=== PATIENT | female | born 1940 | race Caucasian/White ===

== ENCOUNTER 2016-08-30 12:18 | Emergency (ER) | payer MEDICARE, OTHER ==
[~2016-08-30] VITALS: Ht 162.6 cm; Wt 95.3 kg
[2016-08-30 12:18] VITALS: BP 189/95
--- NOTE | 2016-08-30 12:44 | PHYS DOC ---
Adult General Chief Complaint Chief Complaint: LOWEREXTREMITY INJURY HPI HPI Patient is a 76 year old female who presents by EMS with the complaint of left lower leg injury and pain. The patient was at [employer] about 2 hours prior to arrival when her grandchild caused the kneeler to slip down and strike her in the anterior lower left leg. A swollen, bruised area appeared right away, she was able to bear weight and didn't think much of it. The swelling has gotten larger and she sat down and then had trouble getting up because of the pain. Review of Systems Review of Systems Musculoskeletal: Denies other injury Integument: Denies other bruising Physical Exam Physical Exam Constitutional: Well developed, well nourished, no acute distress, non-toxic appearance. Alert, mentating normally. HENT: Normocephalic, atraumatic, bilateral external ears normal, nose normal. [ ] Eyes: conjunctiva normal, no discharge. [] Neck: Normal range of motion, no stridor. [] Extremities: Left leg: Knee without swelling or deformity. There is a large hematoma over the left lower leg which extends from the middle of the anterior left lower leg down toward the ankle. There is a small superficial overlying abrasion. It is hemostatic. The ankle is without swelling, tenderness, or deformity. The foot has capillary refill less than 2 seconds, warm, not injured. Neurologic: Alert and oriented X 3, normal motor function, normal sensory function, no focal deficits noted. [] Current Patient Data Vital Signs Vital Signs Date Time Temp Pulse Resp B/P (MAP) Pulse Ox O2 Delivery O2 Flow Rate FiO2 08/30/16 12:18 98.5 92 22 189/95 (126) 94 Room Air 98.5 EKG EKG [] Radiology/Procedures Radiology/Procedures [] Course & Med Decision Making Course & Med Decision Making Pertinent Labs and Imaging studies reviewed. (See chart for details) 76-year-old lady who had a fairly minor trauma to her anterior left lower leg resulting in a large hematoma in that location. X-ray negative. I wrapped the patient's lower leg from her toes up to her knee in a Monty wrap for a mild amount of compression. Discussed with the patient and her daughter the use of Monty wrap or compression stocking. See instructions for plan. [] Dragon Disclaimer Dragon Disclaimer This electronic medical record was generated, in whole or in part, using a voice recognition dictation system. Departure Departure Impression: Primary Impression: Hematoma of left lower extremity Disposition: 01 HOME, SELF-CARE Condition: STABLE Patient Instructions: Hematoma, [id number] Additional Instructions: The swelling is caused by a collection of blood under the skin called a hematoma. This is like a bruise, but instead of being spread out in the tissue, it is a little pocket of blood. This is not a "blood clot" and will not get into your system. Your body will eventually liquefy this blood collection, break it down, and return it into your system. This will take several weeks to completely go away. The bruising appearance will settle down with gravity around your ankle and foot. As much as possible, stay off of your leg and keep it elevated for the next 3-4 days and then as needed for pain and swelling. You may wrap it or where compression stockings for support and comfort, not too tight. JOANNA WILSON MD August 30, 2016 12:44
--- NOTE | 2016-08-30 12:54 | RAD ---
EXAM: Left tibia and fibula, 2 views.. HISTORY: Pain. COMPARISON: None. FINDINGS: Frontal and lateral views of the tibia and fibula are obtained. There is a left knee arthroplasty in expected position. There is cortical irregularity along the inferior lateral malleolus, likely due to the sequela of remote injury. There is increased soft tissue density within the anterior lower 70 soft tissues, with a reported hematoma. No foreign body is seen. There is diffuse ankle soft tissue swelling. IMPRESSION: 1. Suspected soft tissue hematoma within the anterior colvin measuring approximately 10 cm in maximum dimension. 2. Left knee arthroplasty in expected position. 3. Suspected remote degenerative or posterior matter changes involving the lateral malleolus. 4. Diffuse ankle soft tissue swelling.
== END 2016-08-30 13:11 | disposition home or self-care (01) ==
LOC: ER 12:18
DX: S80.12XA Contusion of left lower leg, initial encounter (principal); W22.8XXA Striking against or struck by other objects, initial encounter; Y93.89 Activity, other specified; Y92.22 Religious institution as the place of occurrence of the external cause; Y99.8 Other external cause status
CPT/HCPCS: 73590; 99284